=== PATIENT | female | born 1950 | race Caucasian/White ===

== ENCOUNTER 2019-04-03 00:14 | Day surgery (SDC) | payer MEDICARE, OTHER, SELFPAY ==
[2019-03-30 13:38] VITALS: BMI 39.8
[2019-04-03 06:37] VITALS: BP 142/82; PULSE 76; RESP 16; TEMP 36.7; O2SAT 96
[2019-04-03] MEDS: LACTATED RINGERS 1,000 ML 150 ML IV CONT (06:43)
--- NOTE | 2019-04-03 06:50 | P.HP_ITS ---
History of Present Illness History of Present Illness Consent: Risks, benefits, and alternatives have been discussed and questions answered. Patient agrees to proceed with procedure. Chief complaint: Hx Of Polyps Narrative: Leslie Weiss is a 68 year old W female Undergoing screening colonoscopy secondary history of colonic polyps. Patient had last colonoscopy 5 years ago which time I removed hyperplastic polyp. She did have previous colonoscopy In [place] &had polyps removed, however, I do not have these records. patient is asymptomatic and there is no family history of colon cancer. [facility], LAT[facility] Past Medical History Medical History (Updated 12/29/18 @ 09:20 by Boni Santos DO) Colon polyps Hypertension Osteoarthritis Vitamin D deficiency Surgical History Surgical History (Updated 04/03/19 @ 06:53 by Goyo Dumont MD) H/O: hysterectomy History of lumpectomy of left breast Status post left knee replacement Family History Family History (Updated 12/29/18 @ 08:15 by Rosemarie Moy CMA) Father Primary cancer of unknown site and cell type Heart disease CAD Mother TIA (transient ischemic attack) Diabetes mellitus Hypertension Cancer of unknown origin COPD (chronic obstructive pulmonary disease) Social History Social History Smoking status: Never smoker Alcohol intake: current Meds Home Medications and Allergies Home Medications Medication Instructions Recorded Confirmed Type geriatric [id number] 1 tablet PO DAILY 12/29/18 03/30/19 History lisinopril 10 mg tablet 10 mg PO DAILY 12/29/18 03/30/19 History cholecalciferol (vitamin D3) 400 unit PO DAILY 03/30/19 03/30/19 History [Vitamin D3] naproxen sodium 220 mg PO BID PRN 03/30/19 03/30/19 History potassium chloride 8 meq PO DAILY 03/30/19 03/30/19 History Allergies Allergy/AdvReac Type Severity Reaction Status Date / Time acetaminophen [From Percocet] AdvReac Intermediate Dizziness Verified 04/03/19 06:34 oxycodone [From Percocet] AdvReac Intermediate Dizziness Verified 04/03/19 06:34 Vital Signs Vital Signs - 24 hr 04/03/19 06:37 Temperature 36.7 C Pulse Rate 76 Respiratory Rate 16 Blood Pressure 142/82 H Pulse Oximetry 96 Exam Const: Orientation/consciousness: patient oriented x3 Resp: Auscultation: clear to auscultation bilaterally Cardio: Rate: regular rate Rhythm: regular rhythm Heart sounds: no murmurs GI: GI Palp: Yes Soft to palpation, No Tenderness to palpation present (GI), Yes No hepatosplenomegaly present and No Palpable mass present Auscultation: normal bowel sounds Neuro: General: patient oriented x3 and no focal motor deficits Extrem: General: no pedal edema Assessment and Plan Additional Plan screening colonoscopy secondary history of colonic polyps
--- NOTE | 2019-04-03 07:06 | WPDANESEPPF ---
Anes - Initial Pre Proc Eval Procedure: Operation Date: 04/03/19 07:30 Proposed Procedures p Screening Colonoscopy - Goyo Dumont MD Date/Time: 04/03/19 07:06 Surgeon: Goyo Dumont MD Pre Op Diagnosis: Hx Of Polyps Patient Data Age: 68 Gender: F Height: 5 ft 6 in Weight: 112.1 kg Last Vital Signs Temp 36.7 C 04/03/19 06:37 Pulse 76 04/03/19 06:37 Resp 16 04/03/19 06:37 BP 142/82 H 04/03/19 06:37 Pulse Ox 96 04/03/19 06:37 Allergies Allergy/AdvReac Type Severity Reaction Status Date / Time acetaminophen [From Percocet] AdvReac Intermediate Dizziness Verified 04/03/19 06:34 oxycodone [From Percocet] AdvReac Intermediate Dizziness Verified 04/03/19 06:34 Home Medications Medication Instructions Recorded Confirmed Type geriatric [id number] 1 tablet PO DAILY 12/29/18 03/30/19 History lisinopril 10 mg tablet 10 mg PO DAILY 12/29/18 03/30/19 History cholecalciferol (vitamin D3) 400 unit PO DAILY 03/30/19 03/30/19 History [Vitamin D3] naproxen sodium 220 mg PO BID PRN 03/30/19 03/30/19 History potassium chloride 8 meq PO DAILY 03/30/19 03/30/19 History Patient hx anesthesia problems: none Family hx anesthesia problems: none PMFSH Past Medical History Medical History Colon polyps Hypertension Osteoarthritis Vitamin D deficiency Surgical History Surgical History H/O: hysterectomy History of lumpectomy of left breast Status post left knee replacement Family History Family History Father Primary cancer of unknown site and cell type Heart disease CAD Mother TIA (transient ischemic attack) Diabetes mellitus Hypertension Cancer of unknown origin COPD (chronic obstructive pulmonary disease) Social History Social History Smoking status: Never smoker Alcohol intake: current Anes - Eval Final PreProcedure Day of Procedure 04/03/19 07:06 Patient weight: morbidly obese Heart: regular rate and rhythm Lungs: clear to auscultation Airway: Mallampati scale class II Neurological: alert and oriented Last oral intake: >/= 8 hours ASA classification: III Emergent: no Anesthetic plan: proceed Anesthesia type and monitoring: general GIVS and standard monitoring Informed Consent: The patient's anesthetic plan and its attendant risks and benefits were discussed with the patient/family/POA. Questions were solicited and answers provided to the satisfaction of the patient/family/POA.
[2019-04-03 07:50] VITALS: BP 101/82; PULSE 76; RESP 18; O2SAT 98
[2019-04-03 08:00] VITALS: BP 113/61; PULSE 79; RESP 19; O2SAT 98
[2019-04-03 08:10] VITALS: BP 130/60; PULSE 75; RESP 18; O2SAT 98
== END 2019-04-03 08:18 | disposition home or self-care (01) ==
PROVIDERS: PCP Internal Medicine; Visit Provider Internal Medicine Gastroenterology
PROC: 0DJD8ZZ Inspection of Lower Intestinal Tract, Via Natural or Artificial Opening Endoscopic (ICD-10-PCS; CPT 45378; principal; 2019-04-03 07:30)
DX: Z12.11 Encounter for screening for malignant neoplasm of colon (principal); K64.4 Residual hemorrhoidal skin tags; K64.1 Second degree hemorrhoids; K57.30 Diverticulosis of large intestine without perforation or abscess without bleeding; Z86.010 Personal history of colon polyps; I10 Essential (primary) hypertension; E55.9 Vitamin D deficiency, unspecified; M19.90 Unspecified osteoarthritis, unspecified site; E66.01 Morbid (severe) obesity due to excess calories; Z68.39 Body mass index [BMI] 39.0-39.9, adult
CPT/HCPCS: G0105; J2001; J2704; J7120

== ENCOUNTER 2019-09-05 15:52 | Outpatient (CLI) | payer MEDICARE, OTHER, SELFPAY ==
[2019-09-05 17:30] LABS: Vitamin D 25 Hydroxy 18.7 ng/mL
== END 2019-09-05 15:53 | disposition home or self-care (01) ==
PROVIDERS: PCP Internal Medicine; Visit Provider Internal Medicine
DX: E03.9 Hypothyroidism, unspecified (principal); E61.1 Iron deficiency; M79.604 Pain in right leg; M79.605 Pain in left leg; E55.9 Vitamin D deficiency, unspecified
CPT/HCPCS: 36415; 82306; 82728; 84443

== ENCOUNTER 2019-12-08 10:01 | Outpatient (CLI) | payer MEDICARE, OTHER, SELFPAY ==
[2019-12-08 13:48] LABS: Vitamin D 25 Hydroxy 47.2 ng/mL
== END 2019-12-08 10:02 | disposition home or self-care (01) ==
PROVIDERS: PCP Internal Medicine; Visit Provider Internal Medicine
DX: E61.1 Iron deficiency (principal); E55.9 Vitamin D deficiency, unspecified
CPT/HCPCS: 36415; 82306; 82728

== ENCOUNTER 2020-01-22 08:31 | Outpatient (CLI) | payer MEDICARE, OTHER, SELFPAY ==
[2020-01-22 09:40] LABS: Basophils Percent Auto 0.6 % (0.2-1.2); Eosinophils Absolute Auto 0.2 K/mm3 (0-0.3); Eosinophils Percent Auto 2.7 % (0-4.4); Hemoglobin 12.8 g/dL (12.0-15.0); Immature Granulocyte Absolute 0.01 K/mm3 (0.00-0.031); Immature Granulocyte Percent A 0.1 % (0-0.5); Lymphocytes Absolute Auto 2.03 K/mm3 (0.9-3.2); Mean Corpuscular Hemoglobin 28.1 pg (26-34); Mean Corpuscular Volume 87.9 fl (80-100); Mean Platelet Volume 9.7 fl (7.4-10.4); Monocytes Absolute Auto 0.5 K/mm3 (0.1-0.6); Monocytes Percent Auto 6.4 % (2.6-8.5); Neutrophils Absolute Auto 4.3 K/mm3 (1.3-6.7); Neutrophils Percent Auto 61.2 % (45.5-73.1); Platelet Count Result 254 k/mm3 (150-375); Red Blood Count 4.55 M/mm3 (4.2-5.4); Red Cell Distribution Width 14.2 % (11.5-14.5)
[2020-01-22 10:01] LABS: Alanine Aminotransferase 45 U/L (4-35); Albumin Level 3.7 g/dL (3.5-5.1); Alkaline Phosphatase 98 U/L (38-126); Anion Gap 2 mmol/L (8-16); Aspartate Amino Transferase 53 U/L (14-36); Bilirubin,Total 0.5 mg/dL (0.2-1.3); Blood Urea Nitrogen 20 mg/dL (7-17); Calcium 9.2 mg/dL (8.4-10.2); Carbon Dioxide 29 mmol/L (22-30); Chloride 107 mmol/L (98-107); Cholesterol 193 mg/dL (0-200); Estimated Glomerular Filt Rate > 60; Glucose 101 mg/dL (65-105); HDL Direct 59 mg/dL; Potassium 4.6 mmol/L (3.4-5.0); Sodium 138 mmol/L (137-145); Triglycerides 79 mg/dL (<150)
[2020-01-22 10:12] LABS: LDL Cholesterol Direct 108 mg/dL
== END 2020-01-22 08:32 | disposition home or self-care (01) ==
PROVIDERS: PCP Internal Medicine; Referring Provider Internal Medicine Endocrinology, Diabetes & Metabolism; Visit Provider Clinical Nurse Specialist
DX: R53.83 Other fatigue (principal); I10 Essential (primary) hypertension
CPT/HCPCS: 36415; 80053; 80061; 84443; 85025

== ENCOUNTER 2020-04-15 09:02 | Outpatient (CLI) | payer MEDICARE, OTHER, SELFPAY ==
[2020-04-15 09:47] LABS: Basophils Percent Auto 0.5 % (0.2-1.2); Eosinophils Absolute Auto 0.3 K/mm3 (0-0.3); Eosinophils Percent Auto 3.9 % (0-4.4); Hematocrit 40.1 % (37.0-47.0); Hemoglobin 12.8 g/dL (12.0-15.0); Immature Granulocyte Absolute 0.01 K/mm3 (0.00-0.031); Immature Granulocyte Percent A 0.2 % (0-0.5); Lymphocytes Absolute Auto 2.04 K/mm3 (0.9-3.2); Lymphocytes Percent Auto 32.2 % (18.3-44.2); Mean Corpuscular HGB Conc 31.9 g/dl (32-36); Mean Corpuscular Hemoglobin 28.1 pg (26-34); Mean Corpuscular Volume 88.1 fl (80-100); Mean Platelet Volume 9.5 fl (7.4-10.4); Monocytes Absolute Auto 0.6 K/mm3 (0.1-0.6); Monocytes Percent Auto 9.5 % (2.6-8.5); Neutrophils Absolute Auto 3.4 K/mm3 (1.3-6.7); Neutrophils Percent Auto 53.7 % (45.5-73.1); Platelet Count Result 298 k/mm3 (150-375); Red Blood Count 4.55 M/mm3 (4.2-5.4); Red Cell Distribution Width 13.8 % (11.5-14.5); White Blood Count 6.3 K/mm3 (4.5-10.0)
[2020-04-15 10:00] LABS: Alanine Aminotransferase 22 U/L (4-35); Albumin Level 3.5 g/dL (3.5-5.1); Alkaline Phosphatase 86 U/L (38-126); Anion Gap 2 mmol/L (8-16); Aspartate Amino Transferase 36 U/L (14-36); Bilirubin,Total 0.4 mg/dL (0.2-1.3); Blood Urea Nitrogen 16 mg/dL (7-17); Calcium 8.6 mg/dL (8.4-10.2); Carbon Dioxide 30 mmol/L (22-30); Chloride 110 mmol/L (98-107); Estimated Glomerular Filt Rate > 60; Glucose 91 mg/dL (65-105); Potassium 4.5 mmol/L (3.4-5.0); Sodium 142 mmol/L (137-145)
[2020-04-18 12:28] LABS: Vitamin D 1,25 (OH)2 Total 41 pg/mL (18-72); Vitamin D2 1,25 (OH)2 <8 pg/mL; Vitamin D3 1,25 (OH)2 41 pg/mL
== END 2020-04-15 09:03 | disposition home or self-care (01) ==
PROVIDERS: PCP Internal Medicine; Visit Provider Internal Medicine
DX: E55.9 Vitamin D deficiency, unspecified (principal); I10 Essential (primary) hypertension; Z01.818 Encounter for other preprocedural examination
CPT/HCPCS: 36415; 80053; 82652; 85025

== ENCOUNTER 2020-12-25 06:42 | Outpatient (CLI) | payer MEDICARE, OTHER, SELFPAY ==
[2020-12-25 07:47] LABS: Basophils Percent Auto 0.5 % (0.2-1.2); Eosinophils Absolute Auto 0.2 K/mm3 (0-0.3); Eosinophils Percent Auto 3.3 % (0-4.4); Hematocrit 40.2 % (37.0-47.0); Hemoglobin 12.8 g/dL (12.0-15.0); Immature Granulocyte Absolute 0.02 K/mm3 (0.00-0.031); Immature Granulocyte Percent A 0.3 % (0-0.5); Lymphocytes Absolute Auto 2.08 K/mm3 (0.9-3.2); Lymphocytes Percent Auto 28.4 % (18.3-44.2); Mean Corpuscular HGB Conc 31.8 g/dl (32-36); Mean Corpuscular Hemoglobin 29.2 pg (26-34); Mean Corpuscular Volume 91.6 fl (80-100); Mean Platelet Volume 9.5 fl (7.4-10.4); Monocytes Absolute Auto 0.7 K/mm3 (0.1-0.6); Neutrophils Absolute Auto 4.3 K/mm3 (1.3-6.7); Neutrophils Percent Auto 58.5 % (45.5-73.1); Platelet Count Result 305 k/mm3 (150-375); Red Blood Count 4.39 M/mm3 (4.2-5.4); Red Cell Distribution Width 13.6 % (11.5-14.5); White Blood Count 7.3 K/mm3 (4.5-10.0)
[2020-12-25 08:00] LABS: Alanine Aminotransferase 22 U/L (4-35); Albumin Level 3.9 g/dL (3.5-5.1); Alkaline Phosphatase 90 U/L (38-126); Anion Gap 7 mmol/L (8-16); Aspartate Amino Transferase 30 U/L (14-36); Bilirubin,Total 0.4 mg/dL (0.2-1.3); Blood Urea Nitrogen 18 mg/dL (7-17); Carbon Dioxide 26 mmol/L (22-30); Chloride 107 mmol/L (98-107); Cholesterol 186 mg/dL (0-200); Estimated Glomerular Filt Rate > 60; Glucose 105 mg/dL (65-110); HDL Direct 53 mg/dL; Potassium 4.6 mmol/L (3.4-5.0); Sodium 140 mmol/L (137-145); Triglycerides 98 mg/dL (<150)
[2020-12-25 08:11] LABS: LDL Cholesterol Direct 98 mg/dL
[2020-12-25 11:19] LABS: Vitamin D 25 Hydroxy 26.1 ng/mL
== END 2020-12-25 06:43 | disposition home or self-care (01) ==
PROVIDERS: PCP Internal Medicine; Visit Provider Nurse Practitioner
DX: E55.9 Vitamin D deficiency, unspecified (principal); I10 Essential (primary) hypertension
CPT/HCPCS: 36415; 80053; 80061; 82306; 85025

== ENCOUNTER 2021-05-23 10:51 | Outpatient (CLI) | payer MEDICARE, OTHER, SELFPAY ==
--- NOTE | ~2021-05-23 | XR_ITS ---
EXAMINATION: XR hip RT min 3V w AP pelvis DATE: 05/23/2021 10:47 INDICATION: Lateral right hip pain radiating to the groin TECHNIQUE: Anteroposterior view of the pelvis and anteroposterior, frog leg and cross-table lateral v iews of the right hip were obtained. COMPARISON: None. FINDINGS: Mild lower lumbar levocurvature with moderate spondylosis. Alignment is otherwise normal. No fracture or suspected avascular necrosis. Mild bilateral hip and sacroiliac osteoarthritis. A couple phleboli ths in the left hemipelvis. IMPRESSION: 1. Mild bilateral hip and sacroiliac osteoarthritis. 2. Mild lower lumbar levocurvature with moderate spondylosis. Reviewed, dictated and finalized at location B.
--- NOTE | ~2021-05-23 | XR_ITS ---
EXAMINATION: XR lumbar spine 2-3V EXAM DATE: 05/23/2021 10:46 INDICATION: M54.50 - Low back pain, no injury, pain across sacrum. TECHNIQUE: Lumber spine frontal, lateral, lateral L5-S1 projections for interpretation. There is no prior study for comparison. FINDINGS: There is 4 mm anterolisthesis L4 on L5. Moderate loss of the L5-S1 disc height, mild to mo derate at the other lumbar levels. There is moderate mid and lower lumbar facet arthropathy. No spond ylolysis suspected. The vertebral body heights are maintained. Sacrum, sacroiliac joints, sacral arcu ate lines are intact. Minimal aortic arteriosclerosis. IMPRESSION: Moderate facet arthropathy and lower lumbar disc disease. Reviewed, dictated and finalized at location A.
[2021-05-23 11:44] LABS: Basophils Percent Auto 0.4 % (0.2-1.2); Eosinophils Absolute Auto 0.1 K/mm3 (0-0.3); Eosinophils Percent Auto 1.1 % (0-4.4); Hemoglobin 12.7 g/dL (12.0-15.0); Immature Granulocyte Absolute 0.03 K/mm3 (0.00-0.031); Immature Granulocyte Percent A 0.3 % (0-0.5); Lymphocytes Absolute Auto 2.21 K/mm3 (0.9-3.2); Lymphocytes Percent Auto 24.5 % (18.3-44.2); Mean Corpuscular Hemoglobin 27.1 pg (26-34); Mean Corpuscular Volume 87.4 fl (80-100); Mean Platelet Volume 9.5 fl (7.4-10.4); Monocytes Absolute Auto 0.8 K/mm3 (0.1-0.6); Monocytes Percent Auto 8.9 % (2.6-8.5); Neutrophils Absolute Auto 5.9 K/mm3 (1.3-6.7); Neutrophils Percent Auto 64.8 % (45.5-73.1); Platelet Count Result 300 k/mm3 (150-375); Red Blood Count 4.69 M/mm3 (4.2-5.4); Red Cell Distribution Width 15.6 % (11.5-14.5)
[2021-05-23 11:55] LABS: Alanine Aminotransferase 21 U/L (4-35); Albumin Level 3.8 g/dL (3.5-5.1); Alkaline Phosphatase 90 U/L (38-126); Anion Gap 4 mmol/L (8-16); Aspartate Amino Transferase 30 U/L (14-36); Bilirubin,Total 0.3 mg/dL (0.2-1.3); Blood Urea Nitrogen 18 mg/dL (7-17); Calcium 8.9 mg/dL (8.4-10.2); Carbon Dioxide 28 mmol/L (22-30); Chloride 107 mmol/L (98-107); Estimated Glomerular Filt Rate > 60; Glucose 84 mg/dL (65-110); Potassium 4.6 mmol/L (3.4-5.0); Sodium 139 mmol/L (137-145)
[2021-05-23 12:37] LABS: Vitamin D 25 Hydroxy 38.9 ng/mL
== END 2021-05-23 10:52 | disposition home or self-care (01) ==
PROVIDERS: PCP Internal Medicine; Visit Provider Nurse Practitioner
DX: R53.83 Other fatigue (principal); F41.9 Anxiety disorder, unspecified; M54.50 Low back pain, unspecified; M25.551 Pain in right hip; R74.8 Abnormal levels of other serum enzymes; I70.0 Atherosclerosis of aorta; M47.817 Spondylosis without myelopathy or radiculopathy, lumbosacral region; M16.0 Bilateral primary osteoarthritis of hip; M47.818 Spondylosis without myelopathy or radiculopathy, sacral and sacrococcygeal region; Z51.81 Encounter for therapeutic drug level monitoring; Z79.899 Other long term (current) drug therapy
CPT/HCPCS: 36415; 72100; 73502; 80053; 82306; 84443; 85025

== ENCOUNTER → 2021-06-12 11:45 | Outpatient (CLI) | payer MEDICARE, OTHER, SELFPAY ==
--- NOTE | ~2021-06-12 | CT_ITS ---
EXAMINATION: CT lumbar spine wo con DATE: 06/12/2021 12:05 INDICATION: Low back pain. Radiculopathy. TECHNIQUE: Computed tomography (CT) of the lumbar spine was performed without intravenous contrast. A utomated exposure control and iterative reconstruction technique were employed. The dose-length produ ct was 882.07 mGy-cm. COMPARISON: Lumbar spine radiographs 05/23/2021 FINDINGS: There is 4 degrees dextrocurvature of lumbar spine. There is 3 mm anterolisthesis of L3 on L4, 5 mm anterolisthesis of L4 on L5, and 3 mm retrolisthesis of L5 on S1. Vertebral body heights are normal. There is moderately decreased disc height from L1-L2 through L4-L5 and severely decreased di sc height at L5-S1 with endplate remodeling. There is Baastrup disease at L2-L3 and L3-L4. The follow ing disc levels are specifically discussed: L1-L2: The disc is bulging. There is mild bilateral facet joint osteoarthritis. There is mild bilater al neural foraminal stenosis. There is mild central canal stenosis. L2-L3: The disc is bulging. There is mild bilateral facet joint osteoarthritis. There is mild bilater al neural foraminal stenosis. There is mild central canal stenosis. L3-L4: The disc is bulging. There is severe bilateral facet joint osteoarthritis. There is mild bilat eral neural foraminal stenosis. There is mild central canal stenosis. L4-L5: The disc is bulging. There is severe bilateral facet joint osteoarthritis. There is mild right and moderate left neural foraminal stenosis. There is mild central canal stenosis. L5-S1: The disc is bulging. There is severe bilateral facet joint osteoarthritis. There is mild bilat eral neural foraminal stenosis. There is mild central canal stenosis. IMPRESSION: 1. Severe lumbar spondylosis. Reviewed, dictated and finalized at location A.
== END ==
PROVIDERS: PCP Internal Medicine; Visit Provider Nurse Practitioner Family
DX: M47.27 Other spondylosis with radiculopathy, lumbosacral region (principal); M48.07 Spinal stenosis, lumbosacral region
CPT/HCPCS: 72131

== ENCOUNTER → 2022-01-15 09:51 | Outpatient (CLI) | payer MEDICARE, OTHER, SELFPAY ==
--- NOTE | ~2022-01-15 | XR_ITS ---
XR knee LT min 4V DATE: 01/15/2022 10:07 INDICATION: Posterior left knee and proximal calf pain TECHNIQUE: 4 views including sunrise COMPARISON: None FINDINGS: Status post left total knee arthroplasty with patellar resurfacing. Mild suprapatellar knee joint effusion is suggested. There is osteopenia. No fracture, dislocation, periosteal reaction or bone destruction is detected. IMPRESSION: Status post left total knee arthroplasty Mild knee joint effusion Osteopenia Reviewed, dictated and finalized at location B. [employer]
== END ==
PROVIDERS: PCP Nurse Practitioner; Visit Provider Nurse Practitioner
DX: M85.862 Other specified disorders of bone density and structure, left lower leg (principal); M25.462 Effusion, left knee
CPT/HCPCS: 73564